=== PATIENT | female | born 1965 | race Caucasian/White ===

== ENCOUNTER 2024-11-23 17:40 | Emergency (ER) | payer MEDICARE, MEDICAID, SELFPAY ==
[2024-11-23 17:41] VITALS: BMI 30.9
[2024-11-23 18:13] VITALS: BP 153/83; PULSE 60; RESP 18; TEMP 37.3; O2SAT 97
--- NOTE | 2024-11-23 18:14 | XR_ITS ---
Examination: Right elbow 3 views Technique: Elbow AP, oblique, lateral 3 views Exam date and time: November 23, 2024 1837 hours INDICATIONS: Right elbow pain beginning 2 days ago. FINDINGS: Mild generalized elbow osteoarthritis, mild spurring of the coronoid process of the ulna No fracture or dislocation 2 mm posterior bony olecranon spur. No elbow effusion IMPRESSION: Mild elbow osteoarthritis.
--- NOTE | 2024-11-23 18:14 | XR_ITS ---
Examination: Shoulder,right, 3 views Technique: Shoulder AP internal rotation, AP external rotation, Y view shoulder, 3 views Exam date and time :November 23, 2024 1831 hours INDICATIONS: Regular pain beginning 2 days ago, no injury FINDINGS: Mild narrowing glenohumeral joint No shoulder fracture or dislocation. No CT joint separation. Negative for calcific tendinitis IMPRESSION: Mild narrowing glenohumeral joint
--- NOTE | 2024-11-23 18:16 | EDNOTE_ITS ---
Upper Extremity Injury RME/HPI General Chief Complaint: Hand/Wrist Problems Stated Complaint: RIGHT HAND PAIN TODAY AT 1000 Time Seen by Provider: 11/23/24 18:07 Source: patient, RN notes reviewed and old records reviewed Arrival date/time: 11/23/24 17:40 Mode of arrival: ambulatory Limitations: no limitations RME / HPI RME / HPI narrative: 59yof presents to ED for right elbow and shoulder pain that initiated this morning. Patient denies preceding injury or fall. Reports increased pain with ROM and palpation. No fever, joint swelling, focal weakness or numb ness/tingling reported. Patient took Excedrin this morning with little relief. Related Data Previous Rx's ?Medication ?Instructions ?Recorded lisinopril 5 mg tablet 5 mg PO QDAY #30 tabs cyclobenzaprine 10 mg tablet 10 mg PO HS #20 tabs 08/13 naproxen 500 mg tablet (Naprosyn) 500 mg PO BID #60 ta bs 04/30/18 tramadol 37.5 mg-acetaminophen 325 1 tab PO TID PRN pa in #21 tabs 11/19/22 mg tablet ibuprofen 600 mg tablet 600 mg PO Q6H PRN pain #30 t abs 11/23/24 methocarbamol 500 mg tablet 1,000 mg (2 x 500 mg) PO Q 8H PRN 11/23/24 pain #30 tabs Allergies Allergy/AdvReac Type Severity Reaction Status Date / Time No Known Allergies Allergy Verified 11/23/24 17:44 Review of Systems Review of Systems Systems Reviewed: All systems reviewed, normal except as documented Musculoskeletal Musculoskeletal: Reports arthralgias, Denies deformity, Denies joint swelling, Reports limited range of motion, Denies numbness and Denies tingling Neurologic Neurologic: Denies numbness and Denies tingling Past Medical History Past Medical History CARDIAC: Positive Hypertension GASTROINTESTINAL: Positive Obesity Surgical History SURGICAL: Positive Section Social History SMOKING STATUS: Never smoker SUBSTANCE USE: does not use ALCOHOL: Never ED Exam General Limitations: Present no limitations General appearance: Present alert and in no apparent distress Head Head exam: Present atraumatic and normocephalic Eye Eye exam: Present normal appearance, PERRL and EOMI ENT ENT exam: Present normal exam and mucous membranes moist Neck Neck exam: Present normal inspection and full ROM Chest Chest inspection: Present normal inspection and symmetric chest wall rise Respiratory Respiratory exam: Present normal lung sounds bilaterally; Absent respiratory distress Cardiovascular Cardiovascular exam: Present regular rate and normal rhythm Extremities Exam Extremities exam: Present other (Mild tenderness to right shoulder, right elbow. No swelling or deformity. Limited ROM 2/2 pain. 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) Back Exam Back exam: Present normal inspection and full ROM Neurological Exam Neurological exam: Present alert and oriented X3; Absent motor sensory deficit Psychiatric Psychiatric exam: Present normal affect and normal mood Skin Skin exam: Present warm, dry, intact and normal color Course Quality Measures none Orders Category Date Time Status sling [Splint / Immobilizer] STAT Care 11/23/24 19:22 Completed XR elbow comp RT min 3V Stat Exams 11/23/24 18:14 Completed XR shoulder RT min 2V Stat Exams 11/23/24 18:14 Completed CYCLObenzaPRINE [Flexeril] Med 11/23/24 18:14 Discontinued 10 mg PO X1 ONE Ketorolac Inj [Toradol Inj] Med 11/23/24 18:14 Discontinued 30 mg IM X1 ONE Vital Signs Vital signs: Vital Signs Temperature 99.1 F 11/23/24 18:13 Pulse Rate 60 11/23/24 18:13 Respiratory Rate 18 11/23/24 18:13 Blood Pressure 153/83 H 11/23/24 18:13 Pulse Oximetry (%) 97 11/23/24 18:13 Oxygen Delivery Method Room Air 11/23/24 18:13 Extremity Injury MDM Narrative MDM Narrative:: 59yof presents to ED for right elbow and shoulder pain that initiated this morning. Patient denies preceding injury or fall. Reports increased pain with ROM and palpation. No fever, joint swelling, focal weakness or numbness/tingling reported. Patient took Excedrin this morning with little relief. Xrays negative for acute injury. Patient is neurovascularly intact. Encouraged RICE therapy, motrin/tylenol prn pain. Ortho referral given for follow up as needed. Stable for dc, RTED precautions given. Patient data External records reviewed:: [facility] previous records (11/15/2022 ED visit for knee pain) Clinical information provided by:: patient Social determinants that could affect healthcare access:: other (specify) (Poor access to healthcare, acculturation difficulty) Patient has the following chronic illnesses:: Obesity, HTN How is presenting disease/condition affected by chronic disease/condition?: ex acerbated by Evaluation data The following diagnostics were reviewed and interpreted by me:: radiology exam(s) Lab and/or radiology exams considered but not ordered:: CBC, ESR, CRP: Do not suspect septic joint Interpretation Summary: Shoulder and elbow x-rays: No fracture per my read Medications / Prescriptions Medications or Prescriptions considered but not ordered:: None Medication administrations:: Medication Administration History Discontinued Medications Cyclobenzaprine HCl (Cyclobenzaprine 5 Mg Tablet) 10 mg PO X1 ONE Stop: 11/23/24 18:15 Last Admin: 11/23/24 18:59 Dose: 10 mg Documented By: Ketorolac Tromethamine (Ketorolac Inj 60 Mg/2 Ml Vial) 30 mg IM X1 ONE Stop: 11/23/24 18:15 Last Admin: 11/23/24 18:59 Dose: 30 mg Documented By: Above medications administered in ED Consultations Consultation(s) initiated? (list below): No Diagnosis Upper Extremity Injury Differential Diagnosis: other (Sprain, strain, contusion, MSK pain, arthritis, gout, septic joint) Most likely diagnosis given after review of the tests above:: Arthralgias Admission Indicated Admission indicated?: not indicated Admission Request Was there a request for admission?: No Disposition Plan Disposition Plan: Discharge Discharge Attestation Discharge Attestation: The patient and all family members were given an opportunity to ask questions and understood the discharge instructions. Discharge instructions specifically effects, indications for sooner follow up or return to the emergency department, and the expected course of current diagnosis. Patient condition: Stable Discharge Plan Plan Patient Disposition: HOME (Self Care) Patient condition on transfer: Stable Prescriptions/Referrals Prescriptions/Med Rec: New ibuprofen 600 mg tablet 600 mg PO Q6H PRN (Reason: pain) Qty: 30 0RF methocarbamol 500 mg tablet 1,000 mg PO Q8H PRN (Reason: pain) Qty: 30 0RF No Action lisinopril 5 mg tablet 5 mg PO QDAY Qty: 30 0RF cyclobenzaprine 10 mg tablet 10 mg PO HS Qty: 20 0RF naproxen [Naprosyn] 500 mg tablet 500 mg PO BID Qty: 60 0RF tramadol-acetaminophen 37.5-325 mg tablet 1 tab PO TID PRN (Reason: pain) Qty: 21 0RF Referrals: Mike Walton MD [Primary Care Provider] - In 1 week Jono Whelan MD [Physician] - (As needed, if symptoms worsen) Problem List Clinical Impression: Osteoarthritis of right elbow, Pain in right shoulder Patient/Caregiver Discharge Instructions Education Materials: ED Arthralgia, ED Osteoarthritis Print Language: Telugu Stand Alone Forms: Destinee Award Info., Patient Portal Info Letter PA/SUPERVIS[employer] Supervising Physician PA/SUPERVIS[employer] Supervising Physician: Bridgett
[2024-11-23] MEDS: KETOROLAC INJ 60 MG/2 ML VIAL 30 MG IM (18:59)
[2024-11-23] MEDS: CYCLObenzaPRINE 5 MG TABLET 10 MG PO (18:59)
[2024-11-23 19:38] VITALS: RESP 18
== END 2024-11-23 19:39 | disposition home or self-care (01) ==
PROVIDERS: Emergency Provider Emergency Medicine; PCP Family Medicine
DX: M19.021 Primary osteoarthritis, right elbow (principal); M19.011 Primary osteoarthritis, right shoulder
CPT/HCPCS: 73030; 73080; 99283; A4565; J1885; A9270